=== PATIENT | female | born 1990 | race American Indian/Alaskan Native ===

== ENCOUNTER 2018-04-24 09:24 | Emergency (ER) | payer MEDICAID ==
[2018-04-24 09:24] VITALS: BMI 26.9
[2018-04-24 09:32] VITALS: O2SAT 100
[2018-04-24] MEDS ORDERED: Sodium Chloride 0.9% 1,000 ML IV ONE (09:48)
--- NOTE | 2018-04-24 09:50 | C.PDOC ---
History Of Present Illness 27 y/o female presents to the ER complaining of intermittent lower abdominal pain which has been present for the past 1 week. Patient states that the pain is mainly in the suprapubic area. Patient describes the pain as sharp and cramping. She notes that she had 2 episodes of non-bloody diarrhea yesterday. She is tolerating PO per baseline. She has associated nausea. Denies having fever,chills, CP,SOB, vomiting, back pain, urinary symptoms, vaginal bleeding, and vaginal discharge. Time Seen by Provider: 04/24/18 09:28 Chief Complaint (Nursing): Abdominal Pain History Per: Patient History/Exam Limitations: no limitations Onset/Duration Of Symptoms: Days Current Symptoms Are (Timing): Still Present Severity: Moderate Past Medical History Reviewed: Historical Data, Nursing Documentation, Vital Signs Vital Signs: Last Vital Signs Temp 97.4 F L 04/24/18 09:30 Pulse 52 L 04/24/18 09:30 Resp 20 04/24/18 09:30 BP 113/72 04/24/18 09:30 Pulse Ox 100 04/24/18 09:30 - Medical History PMH: No Chronic Diseases Other Surgeries: Hx of surgeries Family History: States: No Known Family Hx - Social History Hx Alcohol Use: No Hx Substance Use: No - Immunization History Hx Tetanus Toxoid Vaccination: No Hx Influenza Vaccination: No Hx Pneumococcal Vaccination: No Review Of Systems Except As Marked, All Systems Reviewed And Found Negative. Constitutional: Negative for: Fever, Chills Eyes: Negative for: Vision Change ENT: Negative for: Nose Congestion, Throat Pain Cardiovascular: Negative for: Chest Pain, Palpitations, Light Headedness Respiratory: Negative for: Cough, Shortness of Breath Gastrointestinal: Positive for: Nausea, Abdominal Pain, Diarrhea. Negative for: Vomiting Genitourinary: Negative for: Dysuria, Frequency, Incontinence, Hematuria, Vaginal Discharge, Vaginal Bleeding, Pelvic Pain, Rash Musculoskeletal: Negative for: Neck Pain, Back Pain Skin: Negative for: Rash Neurological: Negative for: Weakness, Numbness, Seizures, Altered Mental Status, Headache, Dizziness Physical Exam - Physical Exam Appears: Non-toxic, No Acute Distress Skin: Normal Color, Warm, Dry Head: Atraumatic, Normacephalic Eye(s): bilateral: Normal Inspection, PERRL, EOMI Nose: Normal Oral Mucosa: Moist Neck: Normal, Normal ROM, Supple Chest: Symmetrical Cardiovascular: Rhythm Regular Respiratory: Normal Breath Sounds Gastrointestinal/Abdominal: Soft, Tenderness (suprapubic and LLQ tenderness), No Guarding, No Rebound Back: Normal Inspection, No CVA Tenderness Extremity: Normal ROM, Capillary Refill (<2s) Pulses: Left Radial: Normal, Right Radial: Normal Neurological/Psych: Oriented x3, Normal Speech, Normal Motor, Normal Sensation Gait: Steady ED Course And Treatment - Laboratory Results Result Diagrams: 04/24/18 10:27 04/24/18 10:27 ECG: Viewed By Mn ECG Rhythm: Sinus Rhythm Interpretation Of ECG: Rate 46; Sinus bradycardia; Normal intervals; No STEMI, nonspecific ST/T changes Rate From EC O2 Sat by Pulse Oximetry: 100 (RA) Pulse Ox Interpretation: Normal - CT Scan/US US Other Rad Studies (CT/US): Read By Radiologist, Radiology Report Reviewed CT/US Interpretation: Date of service: 04/24/2018. HISTORY: lower abdominal pain. LMP 03/03/2018. COMPARISON: Ob ultrasound 04/07/2015. TECHNIQUE: Grayscale and color Doppler sonographic images were obtained of the pelvis utilizing transabdominal and transvaginal approach. FINDINGS: UTERUS: Anteverted and normal in sizemeasuring 9.1 x 3.5 x 5.6 cm. ENDOMETRIUM: Normal in caliber endometrial stripe measures 1 cm. CERVIX: No definite cervical abnormality identified. RIGHT OVARY: Measures 2.7 x 2.4 x 2.6 cm. Follicles noted. Normal flow. LEFT OVARY: Measures 2.5 x 1.6 x 2 cm. Follicles noted. Normal flow. FREE FLUID: Small amount of pelvic free fluid, likely physiologic. OTHER FINDINGS: None. IMPRESSION: Unremarkable pelvic ultrasound. Medical Decision Making Medical Decision Making: Plan: --Labs --UA --US-Abd/Pelv/Trans. --IV Fluids --Toradol IV --Zofran IV Labwork reviewed, unremarkable; POC negative Transvaginal ultrasound unremarkable Patient reports resolution of symptoms with medication. Comfortable with discharge home. Pt with bradycardia, EKG shows rate of 46; sinus lupe; Normal Interval; No STEMI. No CP, palpitations, SOB, dizziness. Pt thin, athletic female with no medical problems. Case discussed with ED attending Dr. Jean, who advises discharge home. Diagnostic testing results and plan of care discussed with patient. Strict instructions given regarding prescription use, importance of followup, and signs/symptoms to return to ER including worsening pain, vomiting, fever, or any other new/worsening symptoms. Pt verbalized understanding of discussion. Patient is A&Ox3, ambulating with steady gait, with vital signs stable for discharge. Disposition - Disposition Disposition: HOME/ ROUTINE Disposition Time: 13:30 Condition: IMPROVED Additional Instructions: Bentyl every 8 hours as needed for abdominal cramping Pepcid every 12 hours as needed for indigestion Zofran every 8 hours as needed for nausea Followup with primary doctor within 2 days Return to ER with any new/worsening symptoms Prescriptions: Dicyclomine [Dicyclomine HCl] 10 mg PO Q8H PRN #21 cap PRN Reason: Pain, Moderate (4-7) Famotidine [Pepcid] 20 mg PO Q12 PRN #14 tab PRN Reason: Indigestion Ondansetron ODT [Zofran ODT] 4 mg PO Q8 #6 odt Instructions: Acute Abdomen (Belly Pain), Adult (DC) Forms: General Discharge Instructions, [facility] (Maldivian) - Clinical Impression Clinical Impression: Bradycardia, Viral syndrome - PA / HEAD CHARGER / Resident Statement MD/DO has reviewed & agrees with the documentation as recorded. - Scribe Statement The provider has reviewed the documentation as recorded by the Anthony Pulido Provider Attestation All medical record entries made by the Anthony were at my direction and personally dictated by me. I have reviewed the chart and agree that the record accurately reflects my personal performance of the history, physical exam, medical decision making, and the department course for this patient. I have also personally directed, reviewed, and agree with the discharge instructions and disposition.
[2018-04-24] MEDS ORDERED: Sodium Chloride 0.9% 1,000 ML ONE (10:03)
[2018-04-24 10:19] LABS: HCG,QUALITATIVE URINE NEGATIVE (NEGATIVE)
[2018-04-24 10:25] LABS: SQUAMOUS EPITHIAL 1 /hpf (0-5); URINE BACTERIA RARE (<OCC); URINE BILIRUBIN NEGATIVE (NEGATIVE); URINE BLOOD NEGATIVE (NEGATIVE); URINE CLARITY Clear (Clear); URINE COLOR Yellow (YELLOW); URINE GLUCOSE (UA) NORMAL (Normal); URINE LEUKOCYTE ESTERASE NEG Leu/uL (Negative); URINE PROTEIN NEGATIVE (NEGATIVE); URINE UROBILINOGEN NORMAL mg/dL (0.2-1.0)
[2018-04-24 10:42] LABS: INR 1.1
[2018-04-24 10:43] LABS: BASO % 0.4 % (0.0-2.0); EOS % 0.4 % (0.0-4.0); HEMOGLOBIN 12.3 g/dL (11.0-16.0); LYMPH # 2.1 K/uL (1.0-4.3); LYMPH % 31.5 % (20.0-40.0); MEAN CELL VOLUME 88.7 fL (81.0-99.0); MEAN CORPUSCULAR HEMOGLOBIN 28.6 pg (27.0-31.0); MEAN CORPUSCULAR HGB CONC 32.3 g/dL (33.0-37.0); MEAN PLATELET VOLUME 9.9 fL (7.2-11.7); MONO # 0.4 K/uL (0.0-0.8); NEUT # 4.1 K/uL (1.8-7.0); NEUT % 61.7 % (50.0-75.0); NRBC % 0.1 % (0.0-2.0); RBC 4.29 Mil/uL (3.80-5.20); RED CELL DISTRIBUTION WIDTH 14.5 % (11.5-14.5); WHITE BLOOD COUNT 6.7 K/uL (4.8-10.8)
[2018-04-24 10:51] LABS: ALB/GLOB RATIO 1.4 (1.0-2.1); ALBUMIN 4.7 g/dL (3.5-5.0); ALT/SGPT 12 U/L (9-52); AST/SGOT 22 U/L (14-36); BLOOD UREA NITROGEN 10 mg/dL (7-17); CALCIUM 8.9 mg/dl (8.6-10.4); GFR NON-AFRICAN AMERICAN > 60
[2018-04-24 11:00] LABS: BARBITURATES, UR NEGATIVE (NEGATIVE); BENZODIAZEPINES, UR NEGATIVE (NEGATIVE); OPIATES, UR NEGATIVE (NEGATIVE); PHENCYCLIDINE, UR NEGATIVE (NEGATIVE)
--- NOTE | 2018-04-24 12:14 | US ---
Date of service: 04/24/2018 HISTORY: lower abdominal pain. LMP 03/03/2018 COMPARISON: Ob ultrasound 04/07/2015 TECHNIQUE: Grayscale and color Doppler sonographic images were obtained of the pelvis utilizing transabdominal and transvaginal approach. FINDINGS: UTERUS: Anteverted and normal in sizemeasuring 9.1 x 3.5 x 5.6 cm. ENDOMETRIUM: Normal in caliber endometrial stripe measures 1 cm. CERVIX: No definite cervical abnormality identified. RIGHT OVARY: Measures 2.7 x 2.4 x 2.6 cm. Follicles noted. Normal flow. LEFT OVARY: Measures 2.5 x 1.6 x 2 cm. Follicles noted. Normal flow. FREE FLUID: Small amount of pelvic free fluid, likely physiologic. OTHER FINDINGS: None. IMPRESSION: Unremarkable pelvic ultrasound.
[2018-04-24 13:17] VITALS: BP 107/64; PULSE 46; RESP 18; TEMP 98
--- NOTE | 2018-04-25 12:07 | CARD ---
APPROVED REPORT Date of service: 04/24/2018 EKG Measurement Heart [id number] <Conclusion> Sinus bradycardia Nonspecific T wave abnormality Abnormal ECG
== END 2018-04-24 13:30 | disposition home or self-care (01) ==
LOC: C.ER 09:24
DX: B34.9 Viral infection, unspecified (principal); R00.1 Bradycardia, unspecified
CPT/HCPCS: 76830; 76856; 80053; 80324; 80345; 80346; 80349; 80353; 80358; 80361; 81001; 83992; 84703; 85025; 85610; 85730; 87086; 93005; 96361; 96374; 96375; 99285; J1885; J2405; J7030